=== PATIENT | male | born 1995 | race American Indian/Alaskan Native ===

== ENCOUNTER 2018-05-25 19:28 | Emergency (ER) | payer MEDICAID ==
[2018-05-25 20:33] VITALS: BMI 26.7
[2018-05-25 20:41] VITALS: RESP 18; TEMP 98
[2018-05-25] MEDS ORDERED: Sodium Chloride 0.9% 1,000 ML IV STA (21:27)
[2018-05-25 22:11] LABS: BASO # 0.03 K/mm3 (0.0-2.0); BASO % 0.2 % (0.0-3.0); GRAN # 11.75 (1.4-6.5); GRAN % 86.5 % (50.0-68.0); HEMOGLOBIN 14.1 g/dL (14.0-18.0); LYMPH # 0.8 (1.2-3.4); LYMPH % 5.9 % (22.0-35.0); MEAN CELL VOLUME 79.3 fl (80.0-105.0); MEAN CORPUSCULAR HEMOGLOBIN 28.1 pg (25.0-35.0); MEAN CORPUSCULAR HGB CONC 35.4 g/dl (31.0-37.0); MEAN PLATELET VOLUME 12.2 fl (7.0-11.0); MONO % 7.4 % (1.0-6.0); RBC 5.02 10^6/uL (3.5-6.1); RED CELL DISTRIBUTION WIDTH 13.9 % (11.5-14.5); WHITE BLOOD COUNT 13.6 10^3/uL (4.5-11.0)
[2018-05-25 22:20] LABS: ALB/GLOB RATIO 1.5 (1.1-1.8); ALBUMIN 4.9 g/dL (3.0-4.8); ALT/SGPT 52 U/L (7-56); AST/SGOT 45 U/L (17-59); BLOOD UREA NITROGEN 12 mg/dL (7-21); GFR NON-AFRICAN AMERICAN > 60; LIPASE 61 U/L (23-300)
[2018-05-25 22:24] LABS: URINE APPEARANCE SLIGHT-CLOUDY (CLEAR); URINE BILIRUBIN NEGATIVE (NEGATIVE); URINE BLOOD LARGE (NEGATIVE); URINE COLOR RED (YELLOW); URINE GLUCOSE (UA) NEGATIVE (NEGATIVE); URINE LEUKOCYTE ESTERASE TRACE Leu/uL (NEGATIVE); URINE PROTEIN 30 mg/dL (<30 mg/dL); URINE UROBILINOGEN 0.2 E.U./dL (<1 E.U./dL)
[2018-05-25 22:26] LABS: URINE RBC TNTC /hpf (0-2)
--- NOTE | 2018-05-25 23:43 | ED PDOC ---
Arrival/HPI - General Historian: Patient - History of Present Illness Narrative History of Present Illness (Text): 05/25/18 23:40 22 year old male, whose past medical history includes asthma, presents to the emergency department with sudden onset flank and back pain. Patient states pain is in the mid to left back and the left abdomen and flank. Patient informs having associated difficulty urinating since onset. Patient denies any trauma or injury. Patient denies any history of kidney stones. Patient also denies any nausea, vomitng, diarrhea, dysuria, fever, or any other complaints. No PMD Time/Duration: Prior to Arrival Symptom Onset: Sudden Symptom Course: Unchanged Context: Home <Yvrose Mack PA-C - Last Filed: 05/26/18 01:54> <David Peralta - Last Filed: 05/26/18 01:58> - General Chief Complaint: Back Pain Time Seen by Provider: 05/25/18 20:41 Past Medical History - Provider Review Nursing Documentation Reviewed: Yes - Pulmonary Hx Asthma: Yes - Psychiatric Hx Substance Use: No - Anesthesia Hx Anesthesia: Yes <Yvrose Mack PA-C - Last Filed: 05/26/18 01:54> Family/Social History - Physician Review Nursing Documentation Reviewed: Yes Family/Social History: No Known Family HX Smoking Status: Never Smoked Hx Alcohol Use: No Hx Substance Use: No <Yvrose Mack PA-C - Last Filed: 05/26/18 01:54> Allergies/Home Meds <Yvrose Mack PA-C - Last Filed: 05/26/18 01:54> <David Peralta - Last Filed: 05/26/18 01:58> Allergies/Adverse Reactions: Allergies No Known Allergies Allergy (Verified 05/25/18 20:33) Review of Systems - Physician Review All systems were reviewed & negative as marked: Yes - Review of Systems Constitutional: absent: Fevers Gastrointestinal: Abdominal Pain (Left flank). absent: Diarrhea, Nausea, Vomiting Genitourinary Male: Other (Difficulty urinating). absent: Dysuria <Yvrose Mack PA-C - Last Filed: 05/26/18 01:54> Physical Exam Vital Signs Reviewed: Yes Vital Signs Temp Pulse Resp BP Pulse Ox 05/25/18 23:27 98.0 F 71 18 127/71 98 05/25/18 20:37 98.0 F 68 18 164/97 H 98 Temperature: Afebrile Blood Pressure: Normal Pulse: Regular Respiratory Rate: Normal Appearance: Positive for: Well-Appearing, Non-Toxic, Comfortable Pain Distress: Mild Mental Status: Positive for: Alert and Oriented X 3 - Systems Exam Head: Present: Atraumatic, Normocephalic Pupils: Present: PERRL Extroacular Muscles: Present: EOMI Conjunctiva: Present: Normal Mouth: Present: Moist Mucous Membranes Neck: Present: Normal Range of Motion Respiratory/Chest: Present: Clear to Auscultation, Good Air Exchange. No: Respiratory Distress, Accessory Muscle Use Cardiovascular: Present: Regular Rate and Rhythm, Normal S1, S2. No: Murmurs Abdomen: No: Tenderness, Distention, Peritoneal Signs Back: Present: Normal Inspection. No: CVA Tenderness, Midline Tenderness, Paraspinal Tenderness Upper Extremity: Present: Normal Inspection. No: Cyanosis, Edema Lower Extremity: Present: Normal Inspection. No: Edema Neurological: Present: GCS=15, CN II-XII Intact, Speech Normal Skin: Present: Warm, Dry, Normal Color. No: Rashes Psychiatric: Present: Alert, Oriented x 3, Normal Insight, Normal Concentration <Yvrose Mack PA-C - Last Filed: 05/26/18 01:54> Vital Signs Temp Pulse Resp BP Pulse Ox 05/25/18 23:27 98.0 F 71 18 127/71 98 05/25/18 20:37 98.0 F 68 18 164/97 H 98 <David Peralta - Last Filed: 05/26/18 01:58> Medical Decision Making ED Course and Treatment: 05/25/18 23:48 Impression: 22 year old male presents with left flank and left back pain Plan: -- CT ABD & Pelvis -- Toradol -- Urine culture -- Labs -- Reassess and disposition Prior Visits: Notes and results from previous visits were reviewed. Progress Notes: Labs reviewed : wbc 13.6, cmp wnl, ua noted to have blood. 05/26/18 00:36 CT SCAN OF THE ABDOMEN AND PELVIS WITHOUT ORAL OR IV CONTRAST. CLINICAL INDICATION: Flank pain. TECHNIQUE: Axial and reformatted sagittal and coronal images of the abdomen pelvis obtained without IV contrast administration. COMPARISON: None. FINDINGS: The visualized lung bases are unremarkable. Mildly enlarged fatty unenhanced liver. Normal gallbladder and extrahepatic biliary system. Normal unenhanced spleen. Normal pancreas. Normal bilateral adrenal glands. Normal size of the right kidney. There is no right renal mass. There are no right renal calculi. 3.7 mm obstructing stone of the right ureterovesical junction. Mild fullness of the right collecting system. Normal size of the left kidney. There is no left renal mass. There are no left renal calculi. There is no left hydronephrosis. Normal visualized left ureter. Normal visualized stomach. Normal small intestine. Normal colon. The appendix is visualized and appears normal. There is no demonstrated peritoneal fluid. Normal abdominal aorta. Normal inferior vena cava. Normal retroperitoneum. Normal urinary bladder. There is no pelvic mass lesion or lymphadenopathy. There is no pelvic fluid. Normal abdominal wall. Normal osseous structures. IMPRESSION: Mildly obstructing stone of the right ureterovesical junction. 05/26/18 01:54 On reevaluation, patient reports improvement of symptoms, denies any nausea, vomiting, abdominal pain or back pain. On exam, patient remains awake alert and oriented 3 in no acute distress. Abdomen soft and nontender, with no CVA tenderness. Diagnostic results discussed with the patient in great detail. Diagnosis of renal colic d/w the patient, medicated with flomax. Advised to follow up with urology referral in 1-2 days without fail. Advised to take medication as prescribed, drink plenty of water and to strain his urine. Return to the emergency room at any time for any new or worsening symptoms. Patient states he fully agrees with and understands discharge instructions. States that he agrees with the plan and disposition. Verbalized and repeated discharge instructions and plan. I have given the patient opportunity to ask any additional questions. - Lab Interpretations Lab Results: 05/25/18 22:05 05/25/18 22:05 Lab Results 05/25/18 22:05: Sodium 141, Potassium 4.1, Chloride 102, Carbon Dioxide 29, Anion Gap 14, BUN 12, Creatinine 1.0, Est GFR ( Amer) > 60, Est GFR (Non- Af Amer) > 60, Random Glucose 109, Calcium 10.0, Total Bilirubin 0.8, AST 45, ALT 52, Alkaline Phosphatase 56, Total Protein 8.2, Albumin 4.9 H, Globulin 3.3, Albumin/Globulin Ratio 1.5, Lipase 61 05/25/18 22:05: WBC 13.6 H, RBC 5.02, Hgb 14.1, Hct 39.8 L, MCV 79.3 L, MCH 28.1, MCHC 35.4, RDW 13.9, Plt Count 182, MPV 12.2 H, Gran % 86.5 H, Lymph % (Auto) 5.9 L, [place] % (Auto) 7.4 H, Eos % (Auto) 0.0 L, Baso % (Auto) 0.2, Gran # 11.75 H, Lymph # (Auto) 0.8 L, [place] # (Auto) 1.0 H, Eos # (Auto) 0.0, Baso # (Auto) 0.03 05/25/18 21:22: Urine Color Red, Urine Appearance Slight-cloudy, Urine pH 8.0, Ur Specific [place] 1.020, Urine Protein 30 H, Urine Glucose (UA) Negative, Urine Ketones Negative, Urine Blood Large H, Urine Nitrate Negative, Urine Bilirubin Negative, Urine Urobilinogen 0.2, Ur Leukocyte Esterase Trace H, Urine RBC Tntc, Urine WBC 2 - 5, Ur Epithelial Cells 4 - 5 - RAD Interpretation Radiology Orders: 05/25/18 21:22 ABD & PELVIS W/O PO OR IV CONT [CT] Stat - Medication Orders Current Medication Orders: Discontinued Medications Sodium Chloride (Sodium Chloride 0.9%) 1,000 mls @ 1,000 mls/hr IV .Q1H STA Stop: 05/25/18 22:26 Last Admin: 05/25/18 21:52 Dose: 1,000 mls/hr eMAR Start Stop Document 05/25/18 21:52 OCS (Rec: 05/25/18 21:52 OCS [id number]) Intravenous Solution Start Date 05/25/18 Start Time 21:52 End Date 05/25/18 End time 22:52 Total Infusion Time 60 Ketorolac Tromethamine (Toradol) 30 mg IVP STAT STA Stop: 05/25/18 21:28 Last Admin: 05/25/18 21:52 Dose: 30 mg MAR Pain Assessment Document 05/25/18 21:52 OCS (Rec: 12/17/18 21:52 OCS [facility]) Pain Reassessment Is this a pain reassessment? No Sleep Is patient sleeping during reassessment? No Presence of Pain Presence of Pain Yes Pain Scale Used Protocol: PSCALES Pain Scale Used Numeric Location Pain Location Body Site Back Description Description Constant Intensity of Pain at present 8 Pain Behavior Facial Grimacing Aggravating Factors ADL's IVP Administration Document 05/25/18 21:52 OCS (Rec: 05/25/18 21:52 OCS [facility]) Charges for Administration # of IVP Administrations 1 <Yvrose Mack PA-C - Last Filed: 05/26/18 01:54> - Lab Interpretations Lab Results: 05/25/18 22:05 05/25/18 22:05 Lab Results 05/25/18 22:05: Sodium 141, Potassium 4.1, Chloride 102, Carbon Dioxide 29, Anion Gap 14, BUN 12, Creatinine 1.0, Est GFR ( Amer) > 60, Est GFR (Non- Af Amer) > 60, Random Glucose 109, Calcium 10.0, Total Bilirubin 0.8, AST 45, ALT 52, Alkaline Phosphatase 56, Total Protein 8.2, Albumin 4.9 H, Globulin 3.3, Albumin/Globulin Ratio 1.5, Lipase 61 05/25/18 22:05: WBC 13.6 H, RBC 5.02, Hgb 14.1, Hct 39.8 L, MCV 79.3 L, MCH 28.1, MCHC 35.4, RDW 13.9, Plt Count 182, MPV 12.2 H, Gran % 86.5 H, Lymph % (Auto) 5.9 L, [place] % (Auto) 7.4 H, Eos % (Auto) 0.0 L, Baso % (Auto) 0.2, Gran # 11.75 H, Lymph # (Auto) 0.8 L, [place] # (Auto) 1.0 H, Eos # (Auto) 0.0, Baso # (Auto) 0.03 05/25/18 21:22: Urine Color Red, Urine Appearance Slight-cloudy, Urine pH 8.0, Ur Specific [place] 1.020, Urine Protein 30 H, Urine Glucose (UA) Negative, Urine Ketones Negative, Urine Blood Large H, Urine Nitrate Negative, Urine Bilirubin Negative, Urine Urobilinogen 0.2, Ur Leukocyte Esterase Trace H, Urine RBC Tntc, Urine WBC 2 - 5, Ur Epithelial Cells 4 - 5 - RAD Interpretation Radiology Orders: 05/25/18 21:22 ABD & PELVIS W/O PO OR IV CONT [CT] Stat - Medication Orders Current Medication Orders: Discontinued Medications Sodium Chloride (Sodium Chloride 0.9%) 1,000 mls @ 1,000 mls/hr IV .Q1H STA Stop: 05/25/18 22:26 Last Admin: 05/25/18 21:52 Dose: 1,000 mls/hr eMAR Start Stop Document 05/25/18 21:52 OCS (Rec: 05/25/18 21:52 OCS [facility]) Intravenous Solution Start Date 05/25/18 Start Time 21:52 End Date 05/25/18 End time 22:52 Total Infusion Time 60 Ketorolac Tromethamine (Toradol) 30 mg IVP STAT STA Stop: 05/25/18 21:28 Last Admin: 05/25/18 21:52 Dose: 30 mg MAR Pain Assessment Document 05/25/18 21:52 OCS (Rec: 05/25/18 21:52 OCS [facility]) Pain Reassessment Is this a pain reassessment? No Sleep Is patient sleeping during reassessment? No Presence of Pain Presence of Pain Yes Pain Scale Used Protocol: PSCALES Pain Scale Used Numeric Location Pain Location Body Site Back Description Description Constant Intensity of Pain at present 8 Pain Behavior Facial Grimacing Aggravating Factors ADL's IVP Administration Document 05/25/18 21:52 OCS (Rec: 05/25/18 21:52 OCS [facility]) Charges for Administration # of IVP Administrations 1 Tamsulosin HCl (Flomax) 0.4 mg PO STAT STA Stop: 05/26/18 00:57 Last Admin: 05/26/18 01:34 Dose: 0.4 mg <David Peralta - Last Filed: 05/26/18 01:58> - PA / ALTERATION TAILOR APPRENTICE / Resident Statement MD/ has reviewed & agrees with the documentation as recorded. - Scribe Statement The provider has reviewed the documentation as recorded by the Bria Preston Provider Scribe Attestation: All medical record entries made by the Scribjackie were at my direction and personally dictated by me. I have reviewed the chart and agree that the record accurately reflects my personal performance of the history, physical exam, medical decision making, and the department course for this patient. I have also personally directed, reviewed, and agree with the discharge instructions and disposition. <Yvrose Mack PA-C - Last Filed: 05/26/18 01:54> - PA / ALTERATION TAILOR APPRENTICE / Resident Statement MD/ has reviewed & agrees with the documentation as recorded. <David Peralta - Last Filed: 05/26/18 01:58> Disposition/Present on Arrival - Present on Arrival Any Indicators Present on Arrival: No History of DVT/PE: No History of Uncontrolled Diabetes: No Urinary Catheter: No History of Decub. Ulcer: No History Surgical Site Infection Following: None - Disposition Have Diagnosis and Disposition been Completed?: Yes Disposition Time: 00:45 Patient Plan: Discharge <Yvrose Mack PA-C - Last Filed: 05/26/18 01:54> <David Peralta - Last Filed: 05/26/18 01:58> - Disposition Diagnosis: Renal colic Disposition: HOME/ ROUTINE Patient Problems: Current Active Problems Problem Status Onset Renal colic Acute Condition: STABLE Discharge Instructions (ExitCare): Renal Colic Additional Instructions: Thank you for letting us take care of you today. You were treated for renal colic. The emergency medical care you received today was directed at your acute symptoms. If you were prescribed any medication, please fill it and take as directed. It may take several days for your symptoms to resolve. Return to the Emergency Department if your symptoms worsen, do not improve, or if you have any other problems. Please contact your doctor in 2 days for re-evaluation and follow up / or call one of the physicians/clinics you have been referred to that are listed on the Patient Visit Information form that is included in your discharge packet. Bring any paperwork you were given at discharge with you along with any medications you are taking to your follow up visit. Our treatment cannot replace ongoing medical care by a primary care provider (PCP) outside of the emergency department. Thank you for allowing the [facility] team to be part of your care today. If you had a CT scan: A Radiologist will review the ED reading if any change in treatment is needed we will contact you. If you had a urine culture: It will take several days for the results, if any change in treatment is needed we will contact you. Prescriptions: Naproxen 500 mg PO BID PRN #20 tablet PRN Reason: Pain, Moderate (4-7) Tamsulosin [Flomax] 0.4 mg PO DAILY #10 cap Referrals: PCP,NO [Primary Care Provider] - Follow up with primary Tashia Strauss MD [Staff Provider] - Follow up with primary Forms: [employer] (Kyr[place]z)
[2018-05-26 02:00] VITALS: BP 130/72; PULSE 75; O2SAT 99
--- NOTE | 2018-05-26 10:55 | CT ---
Date of service: 05/25/2018 PROCEDURE: CT Abdomen and Pelvis without intravenous contrast HISTORY: flank pain, r/o stone COMPARISON: None. TECHNIQUE: Without contrast. Contrast dose: Radiation dose: Total exam DLP = 1127.67 mGy-cm. This CT exam was performed using one or more of the following dose reduction techniques: Automated exposure control, adjustment of the mA and/or kV according to patient size, and/or use of iterative reconstruction technique. FINDINGS: LOWER THORAX: Unremarkable. LIVER: Unremarkable. No gross lesion or ductal dilatation. GALLBLADDER AND BILE DUCTS: Unremarkable. PANCREAS: Unremarkable. No gross lesion or ductal dilatation. SPLEEN: Unremarkable. ADRENALS: Unremarkable. No mass. KIDNEYS AND URETERS: There is a small 1 x 3 mm stone in the right UVJ. There is minimal right-sided hydronephrosis and hydroureter. Finding is best seen on axial image 162 series 3 and coronal image 61 VASCULATURE: Unremarkable. No aortic aneurysm. No aortic atherosclerotic calcification or mural plaque present. BOWEL: Unremarkable. No obstruction. No gross mural thickening. APPENDIX: Unremarkable. Normal appendix. PERITONEUM: Unremarkable. No free fluid. No free air. LYMPH NODES: Unremarkable. No enlarged lymph nodes. BLADDER: Unremarkable. REPRODUCTIVE: Unremarkable. BONES: No acute fracture. OTHER FINDINGS: The report concurs with the preliminary [facility] report IMPRESSION: There is a small 1 x 3 mm stone in the right UVJ. There is minimal right-sided hydronephrosis and hydroureter.
== END 2018-05-26 01:35 | disposition home or self-care (01) ==
LOC: ED 19:28
DX: N23 Unspecified renal colic (principal)
CPT/HCPCS: 74176; 80053; 81001; 83690; 85025; 87086; 96361; 96374; 99283; J1885; J7040